=== PATIENT | male | born 1950 | race Caucasian/White ===

== ENCOUNTER 2022-08-07 08:55 | Outpatient (CLI) | payer OTHER, MEDICARE | END 2022-08-07 08:56 | disposition home or self-care (01) | LOC: LABBT 08:55 | PROVIDERS: ATTEND Thoracic Surgery (Cardiothoracic Vascular Surgery) | DX: Z53.9 Procedure and treatment not carried out, unspecified reason (principal) | CPT/HCPCS: 80048; 85027; 86850; 86870; 86900; 86901 ==

== ENCOUNTER 2022-08-07 09:00 | Inpatient (IN) | payer OTHER, MEDICARE ==
[2022-08-07 09:51] LABS: Hemoglobin 15.7 g/dL (13.5-17.5); Mean Corpuscular HGB CONC 34.4 g/dL (32.0-36.0); Mean Corpuscular Hemoglobin 32.8 pg (27.0-33.0); Mean Corpuscular Volume 95.4 fl (81.2-95.1); Mean Platelet Volume 10.7 fl (7.4-10.4); Platelet Count 237 10x3/uL (150-450); RBC Distribution Width 12.3 % (11.5-14.5); Red Blood Cell (RBC) Count 4.78 10x6/uL (4.32-5.72); White Blood Cell (WBC) Count 7.6 10x3/uL (3.5-10.5)
[2022-08-07 10:22] LABS: Anion Gap 13 mmol/L (10-20); BUN (Urea Nitrogen) 17 mg/dL (8.4-25.7); Calc. Creatinine Clearance 0 mL/min (70-130); Calcium 9.2 mg/dL (7.8-10.44); Carbon Dioxide 23 mmol/L (23-31); Chloride 109 mmol/L (98-107); Estimated GFR 95; Glucose 107 mg/dL (80-115); Potassium 4.4 mmol/L (3.5-5.1); Sodium 141 mmol/L (136-145)
[2022-08-08] MEDS ORDERED: Albumin 5% 500 ML ONE (06:18)
[2022-08-08] MEDS ORDERED: Fentanyl 250 MCG/5 ML VIAL ONE (06:41)
[2022-08-08] MEDS ORDERED: Dexmedetomidine 200 MCG/2 ML VIAL ONE (06:42)
[2022-08-08] MEDS ORDERED: Midazolam HCl 5 mg/5 ml Vial ONE (06:42)
[2022-08-08] MEDS ORDERED: Heparin 10,000 UNITS/1 ML VIAL 30,000 UNITS in Sodium Chloride 0.9% 1,000 ML FS SCH (06:45)
[2022-08-08 07:20] LABS: SARS-CoV-2 NAA Rapid Test DETECTED (NotDetected)
[2022-08-08] MEDS ORDERED: Sodium Chloride 0.9% 100 ML ONE (07:25)
[2022-08-08] MEDS ORDERED: CEFAZOLIN 2 GM VIAL ONE (07:25)
[2022-08-08] MEDS ORDERED: PROPOFOL 200 MG/20 ML VIAL ONE (07:42)
[2022-08-08] MEDS ORDERED: Papaverine 60 MG/2 ML VIAL ONE (07:42)
[2022-08-08] MEDS ORDERED: Heparin 30,000 units/30 ml VIAL ONE (07:42)
[2022-08-08] MEDS ORDERED: Magnesium 5 GM/10 ML VIAL ONE (07:42)
[2022-08-08] MEDS ORDERED: NEOSTIGMINE 3 MG/3 ML SYR 3 MG/3 ML SYRINGE ONE (07:42)
[2022-08-08] MEDS ORDERED: Glycopyrrolate 0.2 MG/ML 5 ML SYRINGE ONE (07:42)
[2022-08-08] MEDS ORDERED: Aminocaproic Acid 5 GM/20 ML VIAL ONE (07:42)
[2022-08-08] MEDS ORDERED: Sodium Bicarb 50 MEQ/50 ML Abboject 8.4% SYRINGE ONE (07:42)
[2022-08-08] MEDS ORDERED: Cardioplegic Soln 1,000 ML BAG ONE (07:42)
[2022-08-08] MEDS ORDERED: Vancomycin 1 GM VIAL ONE (07:42)
[2022-08-08] MEDS ORDERED: Lidocaine 2% PF 100 mg/5 ml Syringe ONE (07:42)
[2022-08-08] MEDS ORDERED: Mannitol 12.5 GM/50 ML ONE (07:42)
[2022-08-08] MEDS ORDERED: Dexamethasone 20 MG/5 ML VIAL ONE (07:42)
[2022-08-08] MEDS ORDERED: Potassium Chloride 60 MEQ/30 ML VIAL ONE (07:42)
[2022-08-08] MEDS ORDERED: Nitroglycerin 50 MG/250 ML BOT ONE (07:42)
[2022-08-08] MEDS ORDERED: Ondansetron PF 4 MG/2 ML Vial ONE (07:42)
[2022-08-08] MEDS ORDERED: Lidocaine 1% PF 5 ML VIAL ONE (07:42)
[2022-08-08] MEDS ORDERED: Norepinephrine 4 MG/4 ML VIAL ONE (07:42)
[2022-08-08] MEDS ORDERED: Thrombin 5000 UNITS/5 ML VIAL ONE (07:42)
[2022-08-08] MEDS ORDERED: Vecuronium 10 MG VIAL ONE (07:42)
[2022-08-08] MEDS ORDERED: Heparin 5,000 UNITS/ML VIAL ONE (07:42)
[2022-08-08] MEDS ORDERED: Calcium Chloride 1 GM/10 ML Abboject SYRINGE ONE (07:42)
[2022-08-08] MEDS ORDERED: Protamine Sulfate 250 MG/25 ML VIAL ONE (07:42)
[2022-08-08] MEDS ORDERED: PHENYLEPHRINE-NS 100 MCG/ML 10 ML SYRINGE ONE ×2 (09:03→10:04)
[2022-08-08] MEDS ORDERED: Insulin Regular 300 UNITS/3 ML VIAL ONE (09:42)
[2022-08-08] MEDS ORDERED: Potassium Chloride 20 MEQ/100 ML PREMIX BAG IVPB PRN (12:08)
[2022-08-08] MEDS ORDERED: Bisacodyl 10 MG SUPP PR PRN (12:08)
[2022-08-08] MEDS ORDERED: Guaifenesin DM 100-10/5 ML UDCUP PO PRN (12:08)
[2022-08-08] MEDS ORDERED: Ondansetron PF 4 MG/2 ML Vial IVP PRN (12:08)
[2022-08-08] MEDS ORDERED: Hetastarch 6% 500 ML 500 ML IVPB PRN (12:08)
[2022-08-08] MEDS ORDERED: Promethazine HCl 25 MG/ML VIAL IM PRN (12:08)
[2022-08-08] MEDS ORDERED: DOPamine 400 MG/D5W 250 ML 250 ML IVPB PRN (12:08)
[2022-08-08] MEDS ORDERED: HYDROcodone/Acetaminophen 5/325 mg Tablet PO PRN (12:08)
[2022-08-08] MEDS ORDERED: Nitroglycerin 50 MG/250 ML BOT 250 ML IVPB PRN (12:08)
[2022-08-08] MEDS ORDERED: Post-Op Insulin Drip Protocol IVPB ONE (12:08)
[2022-08-08] MEDS ORDERED: NOREPINEPHRINE 8 MG/250 ML-D5W 250 ML IVPB PRN (12:08)
[2022-08-08] MEDS ORDERED: hydrALAZINE 20 MG/ML VIAL SLOW IVP PRN (12:08)
[2022-08-08] MEDS ORDERED: Acetaminophen 325 MG TAB PO PRN (12:08)
[2022-08-08] MEDS ORDERED: Mag-Al 1200 mg/1200 mg/30 ML UDCUP PO PRN (12:08)
[2022-08-08] MEDS ORDERED: Morphine 2 MG/ML VIAL SLOW IVP PRN (12:08)
[2022-08-08] MEDS ORDERED: Bisacodyl 5 MG TAB PO PRN (12:08)
[2022-08-08] MEDS ORDERED: niCARdipine 25 MG in Sodium Chloride 0.9% 250 ML 250 ML IVPB PRN (12:08)
[2022-08-08] MEDS: Lactated Ringer's 1,000 ML IV SCH ×2 (12:20→20:19)
[2022-08-08 12:22] LABS: Actual Bicarbonate (HCO3a) 19.5 mEq/L (22-28); Base Excess (BEa) -8.2 mEq/L (-2.0 to +3.0); CO2 Tension 48.5 mmHg (35.0-45.0); Calcium, Ionized (arterial) 1.13 mmol/L (1.12-1.30); Carboxyhemoglobin (COHb) 0.8 gm% (0.0-3.0); Hemoglobin (Hb) 14.6 g/dL (14.0-18.0); O2 Tension (PaO2), arterial 109.3 mmHg (> 80.0); Potassium - ABG Lab 3.51 mmol/L (3.70-5.30); pH, Arterial 7.22 (7.35-7.45)
[2022-08-08 12:25] LABS: Puncture Site Arterial Line
[2022-08-08 12:26] LABS: ALV-art Gradient 115.275 mmHg (0-20)
[2022-08-08] MEDS ORDERED: Morphine 4 MG/ML VIAL ONE (12:26)
[2022-08-08] MEDS ORDERED: FENTANYL 50 MCG/ML 1 ML VIAL SLOW IVP PRN (12:32)
[2022-08-08 12:43] LABS: Hemoglobin 14.1 g/dL (14.0-18.0); Mean Corpuscular HGB CONC 33.5 g/dL (32.0-36.0); Mean Corpuscular Hemoglobin 34.1 pg (27.0-31.0); Mean Platelet Volume 8.7 fL (7.4-10.4); Platelet Count 193 10x3/uL (130-400); RBC Distribution Width 11.7 % (11.5-14.5); Red Blood Cell (RBC) Count 4.14 mill/uL (4.70-6.10); White Blood Cell (WBC) Count 26.2 10x3/uL (4.8-10.8)
[2022-08-08] MEDS ORDERED: Dextrose 50% Abboject 50 ML SYRINGE SLOW IVP PRN (13:00)
[2022-08-08] MEDS ORDERED: Ketorolac Tromethamine 30 MG/ML VIAL IVP SCH (13:00)
[2022-08-08] MEDS ORDERED: Dextrose 5% in Water 1,000 ML IV PRN (13:00)
[2022-08-08] MEDS ORDERED: HUMULIN R 100 UNITS in Sodium Chloride 0.9% 100 ML IVPB SCH (13:00)
[2022-08-08 13:03] LABS: Band 21 % (5-11); Lymphocytes 4 % (21-51); MDiff Complete? YES; Metamyelocyte 3 % (0-0); Monocytes 3 % (0-10); Neutrophil 69 % (42-75); Platelet Morphology Comment Appears Adequate; RBC Morphology Normal
[2022-08-08] MEDS ORDERED: Morphine 4 MG/ML VIAL SLOW IVP PRN (13:30)
[2022-08-08 13:54] LABS: Anion Gap 11 mmol/L (10-20); BUN (Urea Nitrogen) 11 mg/dL (8.4-25.7); Calc. Creatinine Clearance 106 mL/min (70-130); Carbon Dioxide 17 mmol/L (23-31); Chloride 114 mmol/L (98-107); Estimated GFR 97; Glucose 101 mg/dL (80-115); Potassium 4.1 mmol/L (3.5-5.1); Sodium 138 mmol/L (136-145)
[2022-08-08 14:37] LABS: INR-International Normal Ratio 1.3; PTT 30.9 sec (22.9-36.1); Prothrombin Time 16.6 sec (12.0-14.7)
[2022-08-08] MEDS: CEFAZOLIN 2 GM in Sodium Chloride 0.9% 100 ML IVPB SCH ×2 (16:11→23:35)
[2022-08-08] MEDS: Insulin Regular 300 UNITS/3 ML VIAL SC PRN ×3 (16:27→23:32)
[2022-08-08 17:12] LABS: Actual Bicarbonate (HCO3a) 19.2 mEq/L (22-28); Base Excess (BEa) -5.4 mEq/L (-2.0 to +3.0); CO2 Tension 35.1 mmHg (35.0-45.0); Calcium, Ionized (arterial) 1.11 mmol/L (1.12-1.30); Carboxyhemoglobin (COHb) 0.4 gm% (0.0-3.0); Hemoglobin (Hb) 15.5 g/dL (14.0-18.0); O2 Tension (PaO2), arterial 153.6 mmHg (> 80.0); Potassium - ABG Lab 3.89 mmol/L (3.70-5.30); pH, Arterial 7.36 (7.35-7.45)
[2022-08-08 17:16] LABS: ALV-art Gradient 87.725 mmHg (0-20); Puncture Site Arterial Line
[2022-08-08] MEDS: Ketorolac Tromethamine 30 MG/ML VIAL IVP SCH ×2 (17:50→23:35)
[2022-08-08 18:26] LABS: Potassium 4.1 mmol/L (3.5-5.1)
[2022-08-08] MEDS: Famotidine/PF 20 mg/2ml Vial SLOW IVP SCH (20:19)
[2022-08-08] MEDS: FENTANYL 50 MCG/ML 1 ML VIAL SLOW IVP PRN (22:40)
[2022-08-09] MEDS: FENTANYL 50 MCG/ML 1 ML VIAL SLOW IVP PRN (02:42)
[2022-08-09 05:02] LABS: #Lymphocytes 0.6 thou/uL (1.20-3.40); #Monocytes 1.4 thou/uL (0.11-0.59); #Neutrophils 15.2 thou/uL (1.40-6.50); %Basophils 0.1 % (0.0-1.0); %Lymphocytes 3.7 % (21.0-51.0); %Monocytes 8.1 % (0.0-10.0); %Neutrophils 88.1 % (42.0-75.0); Hemoglobin 11.8 g/dL (14.0-18.0); Mean Corpuscular HGB CONC 33.2 g/dL (32.0-36.0); Mean Corpuscular Hemoglobin 33.8 pg (27.0-31.0); Mean Platelet Volume 9.1 fL (7.4-10.4); Platelet Count 164 10x3/uL (130-400); RBC Distribution Width 11.4 % (11.5-14.5); Red Blood Cell (RBC) Count 3.49 mill/uL (4.70-6.10); White Blood Cell (WBC) Count 17.3 10x3/uL (4.8-10.8)
[2022-08-09] MEDS: Ketorolac Tromethamine 30 MG/ML VIAL IVP SCH ×4 (05:52→23:35)
[2022-08-09 06:26] LABS: Anion Gap 12 mmol/L (10-20); BUN (Urea Nitrogen) 14 mg/dL (8.4-25.7); Calc. Creatinine Clearance 119 mL/min (70-130); Calcium 7.7 mg/dL (7.8-10.44); Carbon Dioxide 21 mmol/L (23-31); Chloride 111 mmol/L (98-107); Estimated GFR 99; Glucose 107 mg/dL (80-115); Potassium 4.2 mmol/L (3.5-5.1); Sodium 140 mmol/L (136-145)
[2022-08-09] MEDS: HYDROcodone/Acetaminophen 5/325 mg Tablet PO PRN ×3 (07:17→20:19)
[2022-08-09] MEDS: CEFAZOLIN 2 GM in Sodium Chloride 0.9% 100 ML IVPB SCH (07:18)
[2022-08-09] MEDS: Magnesium 2 GM/50 ML(in water) 2 GM in Premix Bag 1 BAG IVPB SCH (08:39)
[2022-08-09] MEDS: Polyethylene Glycol 3350 17 GM Packet PO SCH (08:39)
[2022-08-09] MEDS: Aspirin 325 MG TAB PO SCH (08:39)
[2022-08-09] MEDS: Famotidine/PF 20 mg/2ml Vial SLOW IVP SCH ×2 (08:40→20:08)
[2022-08-09] MEDS: Insulin Regular 300 UNITS/3 ML VIAL SC PRN ×2 (08:43→12:44)
[2022-08-09] MEDS ORDERED: FLU VACC QS2022-23(65YR UP)/PF 240 MCG/0.7 ML SYRINGE IM ONE (09:00)
[2022-08-09] MEDS: Lactated Ringer's 1,000 ML IV SCH (16:49)
[2022-08-09] MEDS: Atorvastatin Calcium 40 MG TAB PO SCH (20:08)
[2022-08-09] MEDS: Enoxaparin Sodium 40 MG/0.4 ML SYRINGE SC SCH (20:08)
[2022-08-09] MEDS ORDERED: Atorvastatin Calcium 10 MG TAB PO SCH (21:00)
[2022-08-10 04:08] LABS: #Lymphocytes 1.2 thou/uL (1.20-3.40); %Basophils 0.2 % (0.0-1.0); %Eosinophils 0.4 % (0.0-10.0); %Lymphocytes 10.5 % (21.0-51.0); %Monocytes 8.9 % (0.0-10.0); Hemoglobin 11.1 g/dL (14.0-18.0); Mean Corpuscular HGB CONC 34.2 g/dL (32.0-36.0); Mean Platelet Volume 8.4 fL (7.4-10.4); Platelet Count 130 10x3/uL (130-400); RBC Distribution Width 11.7 % (11.5-14.5); Red Blood Cell (RBC) Count 3.17 mill/uL (4.70-6.10); White Blood Cell (WBC) Count 11.3 10x3/uL (4.8-10.8)
[2022-08-10 04:27] LABS: Anion Gap 9 mmol/L (10-20); BUN (Urea Nitrogen) 15 mg/dL (8.4-25.7); Calc. Creatinine Clearance 124 mL/min (70-130); Calcium 7.7 mg/dL (7.8-10.44); Carbon Dioxide 24 mmol/L (23-31); Chloride 107 mmol/L (98-107); Estimated GFR 100; Glucose 104 mg/dL (80-115); Potassium 3.9 mmol/L (3.5-5.1); Sodium 136 mmol/L (136-145)
[2022-08-10] MEDS: HYDROcodone/Acetaminophen 5/325 mg Tablet PO PRN ×4 (04:49→23:39)
[2022-08-10] MEDS: Ketorolac Tromethamine 30 MG/ML VIAL IVP SCH ×4 (05:21→23:40)
[2022-08-10] MEDS: Magnesium 2 GM/50 ML(in water) 2 GM in Premix Bag 1 BAG IVPB SCH (07:23)
[2022-08-10] MEDS: Aspirin 325 MG TAB PO SCH (07:24)
[2022-08-10] MEDS: Carvedilol 3.125 MG TAB PO SCH ×2 (07:24→17:10)
[2022-08-10] MEDS: Polyethylene Glycol 3350 17 GM Packet PO SCH (07:24)
[2022-08-10] MEDS: Famotidine/PF 20 mg/2ml Vial SLOW IVP SCH (07:24)
[2022-08-10] MEDS ORDERED: Mag-Al 1200 mg/1200 mg/30 ML UDCUP PO PRN (07:42)
[2022-08-10] MEDS ORDERED: Bisacodyl 10 MG SUPP PR PRN (07:42)
[2022-08-10] MEDS ORDERED: Nitroglycerin 0.4 MG TAB (25 Tab Bottle) SL PRN (07:42)
[2022-08-10] MEDS ORDERED: Mineral Oil ENEMA PR PRN (07:42)
[2022-08-10] MEDS ORDERED: Bisacodyl 5 MG TAB PO PRN (07:42)
[2022-08-10] MEDS: Furosemide 40 MG TAB PO SCH (08:32)
[2022-08-10] MEDS: Famotidine 20 MG TAB PO SCH ×2 (08:32→20:15)
[2022-08-10] MEDS: Potassium Chloride 10 MEQ TAB PO SCH (08:32)
[2022-08-10 12:42] VITALS: BMI 32.1
[2022-08-10] MEDS: Atorvastatin Calcium 40 MG TAB PO SCH (20:15)
[2022-08-10] MEDS: Enoxaparin Sodium 40 MG/0.4 ML SYRINGE SC SCH (20:16)
[2022-08-11] MEDS: Ketorolac Tromethamine 30 MG/ML VIAL IVP SCH ×2 (05:41→11:33)
[2022-08-11] MEDS: HYDROcodone/Acetaminophen 5/325 mg Tablet PO PRN ×2 (05:42→16:34)
[2022-08-11] MEDS: Famotidine 20 MG TAB PO SCH ×2 (09:26→21:48)
[2022-08-11] MEDS: Aspirin 325 MG TAB PO SCH (09:26)
[2022-08-11] MEDS: Polyethylene Glycol 3350 17 GM Packet PO SCH (09:27)
[2022-08-11] MEDS: Furosemide 40 MG TAB PO SCH (09:27)
[2022-08-11] MEDS: Lisinopril 5 MG TAB PO SCH ×2 (09:27→21:48)
[2022-08-11] MEDS: Potassium Chloride 10 MEQ TAB PO SCH (09:27)
[2022-08-11] MEDS: Carvedilol 6.25 MG TAB PO SCH ×2 (09:27→16:32)
[2022-08-11] MEDS: Atorvastatin Calcium 40 MG TAB PO SCH (21:48)
[2022-08-11] MEDS: Enoxaparin Sodium 40 MG/0.4 ML SYRINGE SC SCH (21:49)
[2022-08-12] MEDS: HYDROcodone/Acetaminophen 5/325 mg Tablet PO PRN (02:28)
[2022-08-12] MEDS ORDERED: Furosemide 100 MG/10 ML VIAL SLOW IVP SCH (07:15)
[2022-08-12] MEDS ORDERED: Carvedilol 6.25 MG TAB PO SCH (08:00)
[2022-08-12] MEDS: Famotidine 20 MG TAB PO SCH (09:57)
[2022-08-12] MEDS: Aspirin 325 MG TAB PO SCH (09:58)
[2022-08-12] MEDS: Potassium Chloride 10 MEQ TAB PO SCH (09:58)
[2022-08-12] MEDS: Polyethylene Glycol 3350 17 GM Packet PO SCH (09:58)
[2022-08-12] MEDS: Lisinopril 5 MG TAB PO SCH (09:58)
[2022-08-12] MEDS: Furosemide 40 MG TAB PO SCH (09:58)
[2022-08-12 09:59] VITALS: BP 133/89
[2022-08-12 11:59] VITALS: TEMP 98.2
== END 2022-08-12 11:20 | disposition home or self-care (01) | DRG 235 ==
LOC: SURG A 08-08 05:57 → CCU 08-08 11:09 → 2NO 08-10 23:33
PROVIDERS: ADMIT Thoracic Surgery (Cardiothoracic Vascular Surgery); ATTEND Thoracic Surgery (Cardiothoracic Vascular Surgery)
PROC: 02100Z9 Bypass Coronary Artery, One Artery from Left Internal Mammary, Open Approach (ICD-10-PCS; principal; 2022-08-08)
PROC: 021209W Bypass Coronary Artery, Three Arteries from Aorta with Autologous Venous Tissue, Open Approach (ICD-10-PCS; 2022-08-08)
PROC: 06BP0ZZ Excision of Right Saphenous Vein, Open Approach (ICD-10-PCS; 2022-08-08)
PROC: 06BQ0ZZ Excision of Left Saphenous Vein, Open Approach (ICD-10-PCS; 2022-08-08)
PROC: 5A1221Z Performance of Cardiac Output, Continuous (ICD-10-PCS; 2022-08-08)
PROC: 02L70CK Occlusion of Left Atrial Appendage with Extraluminal Device, Open Approach (ICD-10-PCS; 2022-08-08)
PROC: 3E0333Z Introduction of Anti-inflammatory into Peripheral Vein, Percutaneous Approach (ICD-10-PCS; 2022-08-08)
PROC: 3E033XZ Introduction of Vasopressor into Peripheral Vein, Percutaneous Approach (ICD-10-PCS; 2022-08-08)
PROC: 30233J1 Transfusion of Nonautologous Serum Albumin into Peripheral Vein, Percutaneous Approach (ICD-10-PCS; 2022-08-09)
DX: I25.10 Atherosclerotic heart disease of native coronary artery without angina pectoris (principal); U07.1 COVID-19; I10 Essential (primary) hypertension; E78.00 Pure hypercholesterolemia, unspecified; Z79.899 Other long term (current) drug therapy; Z79.82 Long term (current) use of aspirin; Z79.02 Long term (current) use of antithrombotics/antiplatelets; Z95.5 Presence of coronary angioplasty implant and graft; Z98.890 Other specified postprocedural states; Z82.49 Family history of ischemic heart disease and other diseases of the circulatory system; Z80.9 Family history of malignant neoplasm, unspecified
CPT/HCPCS: 36416; 36430; 71045; 80048; 82805; 85025; 85027; 85610; 85730; 86850; 86870; 86900; 86901; 86922; 93005; 93010; 93798; 94002; 94150; C1751; C1776; J1100; J1642; J1644; J1650; J1815; J1885; J2001; J2150; J2250; J2270; J2405; J2440; J2704; J2720; J3010; J3370; J3475; J3480; J3490; J7120; P9045; S0017; S0028; U0002

== ENCOUNTER 2024-02-06 12:28 | Outpatient (CLI) | payer MEDICARE, OTHER ==
[2024-02-06 14:01] LABS: #Basophils 0.07 10x3/uL (0.0-0.2); #Eosinphils 0.46 10x3/uL (0.0-0.5); #Monocytes 0.84 10x3/uL (0.0-1.1); #Neutrophils 7.04 10x3/uL (1.5-8.4); %Basophils 0.7 % (0.0-2.0); %Eosinophils 4.7 % (0.0-6.0); %Lymphocytes 14.1 % (18.0-47.0); %Monocytes 8.6 % (0.0-10.0); %Neutrophils 71.7 % (40.0-75.0); Hematocrit 51.9 % (38.8-50.0); Mean Corpuscular HGB CONC 34.7 g/dL (32.0-36.0); Mean Corpuscular Hemoglobin 33.8 pg (27.0-33.0); Mean Corpuscular Volume 97.4 fL (81.2-95.1); Mean Platelet Volume 11.1 fL (7.4-10.4); Platelet Count 245 10x3/uL (150-450); RBC Distribution Width 13.1 % (11.5-14.5); Red Blood Cell (RBC) Count 5.33 10x6/uL (4.32-5.72); White Blood Cell (WBC) Count 9.8 10x3/uL (3.5-10.5)
[2024-02-06 14:17] LABS: Anion Gap 18 mmol/L (10-20); BUN (Urea Nitrogen) 22 mg/dL (8.4-25.7); Calc. Creatinine Clearance 0 mL/min (70-130); Carbon Dioxide 20 mmol/L (23-31); Chloride 108 mmol/L (98-107); Estimated GFR 75; Glucose 97 mg/dL (83-110); Potassium 4.8 mmol/L (3.5-5.1); Sodium 141 mmol/L (136-145)
== END 2024-02-06 12:29 | disposition home or self-care (01) ==
LOC: LABBT 12:28
PROVIDERS: ATTEND Surgery
DX: Z01.818 Encounter for other preprocedural examination (principal); K44.9 Diaphragmatic hernia without obstruction or gangrene
CPT/HCPCS: 80048; 85025; 93005; 93010

== ENCOUNTER 2024-02-06 13:00 | Inpatient (IN) | payer MEDICARE, OTHER ==
[2024-02-06 12:50] VITALS: BMI 30.9
[2024-02-14] MEDS ORDERED: Bupivacaine 0.25% HCL 30 ML VIAL ONE (06:35)
[2024-02-14] MEDS ORDERED: EPINEPHrine 1 MG/ML VIAL ONE (06:36)
[2024-02-14] MEDS ORDERED: Vasopressin 20 UNITS/ML VIAL ONE (07:21)
[2024-02-14] MEDS ORDERED: Lidocaine 2% PF 5 ML VIAL ONE (07:24)
[2024-02-14] MEDS ORDERED: PROPOFOL 20 ML ONE (07:24)
[2024-02-14] MEDS ORDERED: fentaNYL PF 100 MCG/2 ML SYRINGE ONE (07:24)
[2024-02-14] MEDS ORDERED: Rocuronium Bromide 10 MG/ML (10ML VIAL) ONE (07:24)
[2024-02-14] MEDS ORDERED: PHENYLEPHRINE-NS 100 MCG/ML 10 ML SYRINGE ONE (07:25)
[2024-02-14] MEDS ORDERED: ePHEDrine Sulfate 50 MG/10 ML VIAL ONE (07:26)
[2024-02-14] MEDS ORDERED: CEFAZOLIN 2 GM VIAL ONE (07:27)
[2024-02-14] MEDS ORDERED: MINERAL OIL/WHITE PETROLATUM 3.5 GM TUBE ONE (07:27)
[2024-02-14] MEDS ORDERED: Sodium Chloride 0.9% 100 ML ONE (07:27)
[2024-02-14] MEDS ORDERED: Ondansetron PF 4 MG/2 ML Vial ONE (07:52)
[2024-02-14] MEDS ORDERED: Dexamethasone 4 mg/ml Vial ONE (07:52)
[2024-02-14] MEDS ORDERED: SUGAMMADEX SODIUM 200 MG/2 ML VIAL ONE (08:00)
[2024-02-14] MEDS ORDERED: Esmolol 100 MG/10 ML VIAL ONE (08:04)
[2024-02-14] MEDS ORDERED: fentaNYL 50 mcg/mL 1 mL Vial ONE ×2 (09:58→11:04)
[2024-02-14] MEDS ORDERED: traMADol HCl 50 MG TAB ONE (14:38)
== END 2024-02-14 15:03 | disposition home or self-care (01) | DRG 328 ==
LOC: SURG A 02-14 05:31
PROVIDERS: ADMIT Surgery; ATTEND Surgery
PROC: 0BUT4JZ Supplement Diaphragm with Synthetic Substitute, Percutaneous Endoscopic Approach (ICD-10-PCS; principal; 2024-02-14)
PROC: 0DV44ZZ Restriction of Esophagogastric Junction, Percutaneous Endoscopic Approach (ICD-10-PCS; 2024-02-14)
PROC: 8E0W4CZ Robotic Assisted Procedure of Trunk Region, Percutaneous Endoscopic Approach (ICD-10-PCS; 2024-02-14)
PROC: 3E033XZ Introduction of Vasopressor into Peripheral Vein, Percutaneous Approach (ICD-10-PCS; 2024-02-14)
DX: K44.9 Diaphragmatic hernia without obstruction or gangrene (principal); E78.00 Pure hypercholesterolemia, unspecified; J30.2 Other seasonal allergic rhinitis; Z98.890 Other specified postprocedural states
CPT/HCPCS: C1781; J0171; J0665; J1100; J2001; J2405; J2704; J3010; J3490